=== PATIENT | female | born 1955 | race American Indian/Alaskan Native ===

== ENCOUNTER 2017-01-25 14:40 | Outpatient (CLI) | payer BC ==
--- NOTE | 2017-01-25 16:27 | Mammography Report ---
Screening mammogram: Routine views compared to prior exams dating back to 2011. The patient has a heterogeneously dense and symmetrically distributed fibroglandular pattern. In the left superior MLO view there is a circumscribed nodule not identified on prior studies nor seen in the CC projection. In the CC view there is an inhomogeneous area of increased density in the lateral breast not identified on prior exams. The findings otherwise appear unchanged from prior exams. CAD used. Impression: Left breast asymmetries. Recommendation: Left breast compression imaging and ultrasound as needed. BI-RADS CATEGORY: 0 = Needs additional imaging evaluation ACR BI-RADS MAMMOGRAPHIC CODES: 0 = Needs additional imaging evaluation; 1 = Negative; 2 = Benign; 3 = Probably benign; 4 = Suspicious; 5 = Malignant; 6 = Known biopsy-proven malignancy COMMENT: 1. Dense breast tissue, i.e., adenosis, fibrocystic changes, etc., may obscure an underlying neoplasm. 2. Approximately 10% of cancers are not detected with mammography. 3. A negative mammography report should not delay biopsy if a clinically suspicious mass is present. The
== END 2017-01-25 14:41 | disposition home or self-care (01) ==
LOC: MAMMO 14:40
PROVIDERS: ATTEND Obstetrics & Gynecology
DX: Z12.31 Encounter for screening mammogram for malignant neoplasm of breast (principal)
CPT/HCPCS: 77067; G0202

== ENCOUNTER 2017-06-24 09:44 | Outpatient (CLI) | payer BC ==
--- NOTE | 2017-06-24 10:29 | Mammography Report ---
LEFT DIGITAL DIAGNOSTIC MAMMOGRAM : 06/24/17 09:44:00 CLINICAL: Recalled for asymmetry. COMPARISON:01/25/17 screening FINDINGS: Additional mammographic views were performed and are negative. A benign axillary lymph node with central fat is identified on the spot image. IMPRESSION: No mammographic evidence of malignancy. BI-RADS CATEGORY: 2 - - Benign RECOMMENDATION: Routine mammographic screening in one year. ACR BI-RADS MAMMOGRAPHIC CODES: 0 = Needs additional imaging evaluation; 1 = Negative; 2 = Benign; 3 = Probably benign; 4 = Suspicious; 5 = Malignant; 6 = Known biopsy-proven malignancy COMMENT: 1. Dense breast tissue, i.e., adenosis, fibrocystic changes, etc., may obscure an underlying neoplasm. 2. Approximately 10% of cancers are not detected with mammography. 3. A negative mammography report should not delay biopsy if a clinically suspicious mass is present. COMMENT: Patient follow-up letters are generated via our [employer] application.
== END 2017-06-24 09:45 | disposition home or self-care (01) ==
LOC: MAMMO 09:44
PROVIDERS: ATTEND Obstetrics & Gynecology
DX: R92.8 Other abnormal and inconclusive findings on diagnostic imaging of breast (principal)
CPT/HCPCS: G0206-LT